=== PATIENT | male | born 1950 | race Caucasian/White ===

== ENCOUNTER 2024-02-28 17:51 | Inpatient (IN) | payer BC, OTHER ==
[~2024-02-28] VITALS: Ht 177.8 cm; Wt 107.1 kg
[2024-02-28] MEDS ORDERED: ACETAMINOPHEN 325 MG TAB PO PRN (20:15)
[2024-02-28] MEDS: FUROSEMIDE 40 MG/4 ML VIAL IV SCH (20:15)
[2024-02-28] MEDS ORDERED: HYDROcodone-ACET 5/325MG TAB PO PRN (20:15)
[2024-02-28] MEDS ORDERED: ONDANSETRON HCL 4 MG/2 ML VIAL IV PRN (20:15)
[2024-02-28 20:35] VITALS: PULSE 71; RESP 20; O2SAT 94
[2024-02-28] MEDS ORDERED: NITROGLYCERIN 0.4 MG SL TAB SL PRN (21:30)
[2024-02-28 21:47] LABS: Basophils # (auto) 0 10 ^3/uL (0-0.2); Basophils % (auto) 0.7 % (0.0-2.0); Eosinophils # (auto) 0.5 10 ^3/uL (0-0.8); Lymphocytes # (auto) 1.4 10 ^3/uL (0.4-5.4); Monocytes # (auto) 0.5 10 ^3/uL (0-1.3)
[2024-02-28 21:49] LABS: Eosinophils % (auto) 8.2 % (0.0-7.0); Hematocrit 35.3 % (41.0-53.0); Hemoglobin 12.6 g/dL (13.5-17.5); Lymphocytes % (auto) 23.3 % (10.0-50.0); Mean Corpuscular Hemoglobin 38.8 pg (28.0-32.0); Mean Corpuscular Hgb Conc. 35.6 g/dL (32.0-36.0); Mean Corpuscular Volume 108.9 fL (80.0-100.0); Monocytes % (auto) 8.1 % (0.0-12.0); Neutrophils # (auto) 3.6 10 ^3/uL (1.6-8.6); Neutrophils % (auto) 59.7 % (37.0-80.0); Nucleated Red Blood Cells % 0.1 %; Red Blood Cells 3.24 10^6/uL (4.5-5.90)
[2024-02-28 22:00] LABS: Red Cell Distribution Width 20.2 % (11.8-14.3)
[2024-02-28] MEDS: PIPERACILLIN-TAZOB 3.375GM 100 ML IV SCH (22:00)
[2024-02-28 22:03] LABS: Urine Bacteria None Seen /hpf (None Seen)
[2024-02-28 22:12] LABS: Alanine Aminotransferase 32 U/L (7-40); Albumin 3.1 g/dL (3.2-4.8); Alkaline Phosphatase 196 U/L (46-116); Anion Gap 8 (5-15); Aspartate Aminotransferase 60 U/L (13-40); BUN/Creatinine Ratio 10.2 (10.0-20.0); Blood Urea Nitrogen 6 mg/dL (9-23); Calcium 9.1 mg/dL (8.7-10.4); Carbon Dioxide 27 mmol/L (20-30); Chloride 105 mmol/L (98-107); Glucose 99 mg/dL (74-106); Potassium 3.8 mmol/L (3.5-5.1); Sodium 140 mmol/L (136-145)
[2024-02-28 22:13] LABS: Total Protein 6.4 g/dL (5.7-8.2)
[2024-02-28 22:21] LABS: Urine Blood 2+ /uL (Negative); Urine Clarity Clear (Clear); Urine Color Yellow (Yellow); Urine Protein, UAD Negative (Negative); Urine Specific Gravity 1.023 (1.001-1.035); Urine Urobilinogen Normal (Negative); Urine WBC 4 /hpf (0 - 3)
[2024-02-28 22:41] LABS: Anisocytosis Slight; Large Platelets FEW; Macrocytosis Slight; Platelet Estimate Decreased
[2024-02-29] VITALS (7 sets, daily range): BP systolic 99–138; BP diastolic 51–64; PULSE 72–78; RESP 17–20; TEMP 97.4–98.6; O2SAT 92–95
[2024-02-29 06:50] LABS: Chloride 107 mmol/L (98-107); Potassium 4.4 mmol/L (3.5-5.1); Sodium 141 mmol/L (136-145)
[2024-02-29 06:51] LABS: Anion Gap 6 (5-15); Calcium 8.8 mg/dL (8.7-10.4); Carbon Dioxide 28 mmol/L (20-30)
[2024-02-29 06:56] LABS: BUN/Creatinine Ratio 13.2 (10.0-20.0); Blood Urea Nitrogen 7 mg/dL (9-23); Glucose 102 mg/dL (74-106)
[2024-02-29 06:58] LABS: INR 1.84 (0.9-1.15); Prothrombin Time 18.6 sec (9.3-11.8)
[2024-02-29 07:38] LABS: Basophils # (auto) 0 10 ^3/uL (0-0.2); Basophils % (auto) 0.8 % (0.0-2.0); Eosinophils # (auto) 0.4 10 ^3/uL (0-0.8); Eosinophils % (auto) 7.2 % (0.0-7.0); Hematocrit 35.5 % (41.0-53.0); Hemoglobin 12.4 g/dL (13.5-17.5); Lymphocytes # (auto) 0.9 10 ^3/uL (0.4-5.4); Lymphocytes % (auto) 17.6 % (10.0-50.0); Mean Corpuscular Hemoglobin 38.7 pg (28.0-32.0); Mean Corpuscular Volume 110.3 fL (80.0-100.0); Monocytes # (auto) 0.4 10 ^3/uL (0-1.3); Monocytes % (auto) 8.1 % (0.0-12.0); Neutrophils # (auto) 3.6 10 ^3/uL (1.6-8.6); Neutrophils % (auto) 66.3 % (37.0-80.0); Nucleated Red Blood Cells % 0.8 %; Red Blood Cells 3.22 10^6/uL (4.5-5.90); White Blood Cell 5.4 10^3/uL (4.4-10.8)
[2024-02-29 07:40] LABS: Red Cell Distribution Width 20.4 % (11.8-14.3)
[2024-03-01] VITALS (8 sets, daily range): BP systolic 117–134; BP diastolic 55–65; PULSE 60–78; RESP 17–20; TEMP 97.7–98.9; O2SAT 91–96
[2024-03-01 06:21] LABS: Chloride 108 mmol/L (98-107); Potassium 4.3 mmol/L (3.5-5.1); Sodium 140 mmol/L (136-145)
[2024-03-01 06:22] LABS: Anion Gap 4 (5-15); Calcium 8.3 mg/dL (8.7-10.4); Carbon Dioxide 28 mmol/L (20-30)
[2024-03-01 06:27] LABS: BUN/Creatinine Ratio 15.3 (10.0-20.0); Blood Urea Nitrogen 9 mg/dL (9-23); Glucose 112 mg/dL (74-106)
[2024-03-01 06:49] LABS: Basophils # (auto) 0 10 ^3/uL (0-0.2); Eosinophils # (auto) 0.3 10 ^3/uL (0-0.8); Eosinophils % (auto) 5.6 % (0.0-7.0); Hemoglobin 11.7 g/dL (13.5-17.5); Lymphocytes # (auto) 0.9 10 ^3/uL (0.4-5.4); Mean Corpuscular Volume 109.4 fL (80.0-100.0); Monocytes # (auto) 0.5 10 ^3/uL (0-1.3); White Blood Cell 5.7 10^3/uL (4.4-10.8)
[2024-03-01 06:51] LABS: Basophils % (auto) 0.4 % (0.0-2.0); Hematocrit 33.1 % (41.0-53.0); Lymphocytes % (auto) 15.8 % (10.0-50.0); Mean Corpuscular Hemoglobin 38.6 pg (28.0-32.0); Mean Corpuscular Hgb Conc. 35.3 g/dL (32.0-36.0); Monocytes % (auto) 8.6 % (0.0-12.0); Neutrophils % (auto) 69.6 % (37.0-80.0); Nucleated Red Blood Cells % 0.8 %; Red Blood Cells 3.02 10^6/uL (4.5-5.90); Red Cell Distribution Width 20.3 % (11.8-14.3)
[2024-03-01] MEDS: PANTOPRAZOLE 40 MG/10 ML VIAL INJ IV SCH (10:00)
[2024-03-01 10:01] LABS: Hepatitis B Core Total AB Negative (Negative)
[2024-03-01 10:30] LABS: Hepatitis A Total Antibody Positive (Negative); Hepatitis B Surface Antibody Negative (Negative); Hepatitis B Surface Antigen Negative (Negative); Hepatitis C Antibody Negative (Negative)
[2024-03-02] VITALS (8 sets, daily range): BP systolic 120–139; BP diastolic 54–65; PULSE 63–98; RESP 17–20; TEMP 97.6–98.2; O2SAT 91–93
[2024-03-02 04:57] LABS: Hemoglobin 11.1 g/dL (13.5-17.5)
[2024-03-02 04:59] LABS: Hematocrit 30.7 % (41.0-53.0); Mean Corpuscular Hemoglobin 39.7 pg (28.0-32.0); Mean Corpuscular Hgb Conc. 36.1 g/dL (32.0-36.0); Red Blood Cells 2.79 10^6/uL (4.5-5.90); White Blood Cell 4.3 10^3/uL (4.4-10.8)
[2024-03-02 05:05] LABS: Anion Gap 6 (5-15); Carbon Dioxide 27 mmol/L (20-30); Chloride 107 mmol/L (98-107); Sodium 140 mmol/L (136-145)
[2024-03-02 05:06] LABS: Calcium 8.1 mg/dL (8.7-10.4)
[2024-03-02 05:11] LABS: Blood Urea Nitrogen 8 mg/dL (9-23); Glucose 112 mg/dL (74-106)
[2024-03-02 05:17] LABS: Red Cell Distribution Width 20.1 % (11.8-14.3)
[2024-03-02 05:20] LABS: Band Neutrophils % (manual) 0; Basophils % (manual) 0 (0.0-2.0); Blast Cells 0; Metamyelocytes % 0; Myelocytes % 0; Promyelocytes % 0; Reactive Lymphocytes 0
[2024-03-02 08:25] LABS: Eosinophils % (manual) 7 (0-7); Lymphocytes % (manual) 17 (10.0-50.0); Monocytes % (manual) 5 (0-12); Platelet Estimate Decreased
[2024-03-02 08:27] LABS: Anisocytosis Slight; Macrocytosis Moderate
[2024-03-02] MEDS ORDERED: FUROSEMIDE 40 MG TAB PO ONE (10:45)
[2024-03-02] MEDS ORDERED: FURO40TA4 PO (14:44)
[2024-03-02] MEDS ORDERED: SPIR25TA PO (14:44)
[2024-03-02] MEDS ORDERED: AUG875T PO (14:44)
[2024-03-02] MEDS: SPIRONOLACTONE 25 MG TAB PO ONE (15:06)
[2024-03-03] MEDS ORDERED: SPIRONOLACTONE 25 MG TAB PO SCH (10:00)
[2024-03-03] MEDS ORDERED: FUROSEMIDE 40 MG TAB PO SCH (10:00)
== END 2024-03-02 20:00 | disposition home or self-care (01) | DRG 728 ==
LOC: TELE-WESTW 20:33
PROVIDERS: ADMIT Internal Medicine; ATTEND Internal Medicine
DX: N43.1 Infected hydrocele (principal); K76.6 Portal hypertension; R18.8 Other ascites; K80.51 Calculus of bile duct without cholangitis or cholecystitis with obstruction; E87.70 Fluid overload, unspecified; N49.2 Inflammatory disorders of scrotum; K74.60 Unspecified cirrhosis of liver; N40.1 Benign prostatic hyperplasia with lower urinary tract symptoms; R33.8 Other retention of urine; R79.89 Other specified abnormal findings of blood chemistry; R31.9 Hematuria, unspecified; Z82.61 Family history of arthritis; Z87.891 Personal history of nicotine dependence
CPT/HCPCS: 36415; 74176; 74181; 76705; 76870; 80048; 80053; 81001; 82105; 82140; 85007; 85025; 85027; 85610; 86704; 86706; 86708; 86803; 87040; 87340; 93306; G0378; J2470; J2543

== ENCOUNTER 2024-03-06 16:49 | Emergency (ER) | payer BC, OTHER ==
[~2024-03-06] VITALS: Ht 177.8 cm; Wt 101.1 kg
[~2024-03-06 16:49] MED LIST: AUG875T PO; FURO40TA4 PO; SPIR25TA PO
[2024-03-06 18:39] VITALS: BP 126/59; PULSE 86; RESP 16; TEMP 98.2; O2SAT 95
== END 2024-03-06 18:46 | disposition home or self-care (01) ==
LOC: ER 16:49
DX: T83.038A Leakage of other urinary catheter, initial encounter (principal); R33.9 Retention of urine, unspecified; K74.60 Unspecified cirrhosis of liver
CPT/HCPCS: 51702

== ENCOUNTER 2024-03-14 14:51 | Emergency (ER) | payer BC, OTHER ==
[~2024-03-14] VITALS: Ht 177.8 cm; Wt 93.0 kg
[2024-03-14 16:45] LABS: Urine Amorphous Crystal FEW /hpf (None Seen); Urine Bacteria FEW /hpf (None Seen); Urine Blood 3+ /uL (Negative); Urine Clarity Turbid (Clear); Urine Color Yellow (Yellow); Urine Mucus FEW (None Seen); Urine Protein, UAD 1+ (Negative); Urine Specific Gravity 1.013 (1.001-1.035); Urine Urobilinogen Normal (Negative); Urine WBC 77 /hpf (0 - 3); Urine pH 5.5 (5.0-9.0)
[2024-03-14] MEDS: cefTRIAXone 2GM/50ML D5W 50 ML IV ONE (17:49)
[2024-03-14 18:01] LABS: INR 1.69 (0.9-1.15); Prothrombin Time 17.2 sec (9.3-11.8)
[2024-03-14 18:06] LABS: Alanine Aminotransferase 44 U/L (7-40); Albumin 3.3 g/dL (3.2-4.8); Alkaline Phosphatase 210 U/L (46-116); Anion Gap 7 (5-15); Aspartate Aminotransferase 71 U/L (13-40); BUN/Creatinine Ratio 12.5 (10.0-20.0); Bilirubin, Total 9.9 mg/dL (0.2-1.0); Blood Urea Nitrogen 8 mg/dL (9-23); Calcium 9.2 mg/dL (8.7-10.4); Carbon Dioxide 26 mmol/L (20-30); Chloride 98 mmol/L (98-107); Glucose 100 mg/dL (74-106); Potassium 4.4 mmol/L (3.5-5.1); Sodium 131 mmol/L (136-145); Total Protein 7.1 g/dL (5.7-8.2)
[2024-03-14 19:15] LABS: Basophils # (auto) 0.1 10 ^3/uL (0-0.2); Eosinophils # (auto) 0.4 10 ^3/uL (0-0.8); Lymphocytes # (auto) 1.1 10 ^3/uL (0.4-5.4); Mean Corpuscular Hemoglobin 39.6 pg (28.0-32.0); Monocytes # (auto) 0.8 10 ^3/uL (0-1.3)
[2024-03-14 19:16] LABS: Basophils % (auto) 0.9 % (0.0-2.0); Hematocrit 38.3 % (41.0-53.0); Hemoglobin 13.7 g/dL (13.5-17.5); Mean Corpuscular Hgb Conc. 35.8 g/dL (32.0-36.0); Mean Corpuscular Volume 110.9 fL (80.0-100.0); Monocytes % (auto) 12.1 % (0.0-12.0); Neutrophils # (auto) 4.4 10 ^3/uL (1.6-8.6); Nucleated Red Blood Cells % 0.3 %; Red Blood Cells 3.46 10^6/uL (4.5-5.90); White Blood Cell 6.8 10^3/uL (4.4-10.8)
[2024-03-14 20:00] VITALS: BP 119/61; PULSE 71; RESP 18; TEMP 97.7; O2SAT 98
[2024-03-14] MEDS ORDERED: CEPH500C PO (22:03)
== END 2024-03-14 23:14 | disposition home or self-care (01) ==
LOC: ER 14:51
DX: R31.9 Hematuria, unspecified (principal); N39.0 Urinary tract infection, site not specified; Z79.899 Other long term (current) drug therapy
CPT/HCPCS: 36415; 74176; 80053; 81001; 85025; 85610; 87086; 96365; 99285; J0696

== ENCOUNTER 2024-03-16 09:30 | Emergency (ER) | payer BC, OTHER ==
[~2024-03-16] VITALS: Ht 177.8 cm; Wt 93.3 kg
[~2024-03-16 09:30] MED LIST changes: +CEPH500C PO
[2024-03-16 10:31] VITALS: BP 115/59; PULSE 87; RESP 16; TEMP 98.4; O2SAT 95
[2024-03-16 11:08] LABS: Urine Bacteria None Seen /hpf (None Seen)
[2024-03-16 11:26] LABS: Urine Blood 2+ /uL (Negative); Urine Clarity Clear (Clear); Urine Color Yellow (Yellow); Urine Hyaline Cast MOD /lpf (0 - 2); Urine Protein, UAD Negative (Negative); Urine Specific Gravity 1.012 (1.001-1.035); Urine Urobilinogen Normal (Negative); Urine WBC 2 /hpf (0 - 3); Urine pH 5.5 (5.0-9.0)
== END 2024-03-16 11:07 | disposition home or self-care (01) ==
LOC: ER 09:30
DX: N39.0 Urinary tract infection, site not specified (principal); Z79.899 Other long term (current) drug therapy
CPT/HCPCS: 81001

== ENCOUNTER 2024-12-15 04:52 | Inpatient (IN) | payer BC, OTHER ==
[~2024-12-15] VITALS: Ht 182.9 cm; Wt 91.5 kg
[2024-12-15] MEDS: SODIUM CHLORIDE 0.9% 1,000 ML IV ONE (05:00)
--- NOTE | 2024-12-15 05:22 | ED.PDOC ---
History of Present Illness HPI Comments 74-year-old male who came to ER via EMS for weakness. Patient has history of liver cirrhosis and AFib. Recently patient has been having generalized Weakness and dizziness, with episodes of frequent falls. Had another fall injury last December 13 at around 9pm, and has been laying on the floor all this time since he was unable to get up until toady as he called paramedics. Upon arrival paramedics, noted to be hypotensive, 100/50 mmHg, EKG revealed patient to be AFib in RVR Chief Complaint: Weakness Time Seen by MD: 05:21 Primary Care Provider: JORGE Reviewed Notes: Assorter Laundry Notes Allergies: Coded Allergies: NO KNOWN ALLERGIES (Unverified , 02/29/24) Home Meds Active Scripts Cephalexin Monohydrate (Cephalexin) 500 Mg Cap, 1 CAP PO TID for 5 Days, #15 CAP Prov:RADHIKA DELGADO MD 03/14/24 Amoxicillin & Pot Clavulanate (AUGMENTIN TABLET) 875 Mg Tb, 875 MG PO BID for 7 Days, #14 TAB Prov:RADHIKA DELGADO MD 03/02/24 Spironolactone (Aldactone) 25 Mg Tab, 100 MG PO DAILY, #30 TAB Prov:RADHIKA DELGADO MD 03/02/24 Furosemide (Furosemide) 40 Mg Tab, 40 MG PO DAILY for 30 Days, #30 TAB Prov:RADHIKA DELGADO MD 03/02/24 Information Source: Patient, Emergency Med Personnel Mode of Arrival: EMS Severity: Moderate Timing: Hours Duration: Intermittent Prehospital treatment: 12 Lead EKG, Accucheck, IVF Past Medical History PAST MEDICAL HISTORY: AFIB, Liver Past Medical History (Other): Liver cirrhosis Surgical History: Denies all surgeries Family History Family History: Reviewed,noncontributory to illness, Unknown Social History Smoker: Non-Smoker Alcohol: Denies ETOH Use Drugs: Denies Drug Use Lives In: Home Constitutional: denies: chills, diaphoresis, fatigue, fever, malaise, sweats, weakness, others EENTM: denies: blurred vision, double vision, ear bleeding, ear discharge, ear drainage, ear pain, ear ringing, eye pain, eye redness, hearing loss, mouth pain, mouth swelling, nasal discharge, nose bleeding, nose congestion, nose pain, photophobia, tearing, throat pain, throat swelling, voice changes, others Respiratory: denies: cough, hemoptysis, orthopnea, SOB at rest, shortness of breath, SOB with excertion, stridor, wheezing, others Cardiovascular: denies: chest pain, dizzy spells, diaphoresis, Dyspnea on exertion, edema, irregular heart beat, left arm pain, lightheadedness, palpitations, PND, syncope, others Gastrointestinal: denies: abdomen distended, abdominal pain, blood streaked bowels, constipated, diarrhea, dysphagia, difficulty swallowing, hematemesis, melena, nausea, poor appetite, poor fluid intake, rectal bleeding, rectal pain, vomiting, others Genitourinary: denies: burning, dysuria, flank pain, frequency, hematuria, incontinence, penile discharge, penile sore, pain, testicle pain, testicle swelling, urgency, others Neurological: reports: dizziness, weakness; denies: fainting, headache, left sided numbness, left sided weakness, numbness, paresthesia, pre-existing deficit, right sided numbness, right sided weakness, seizure, speech problems, tingling, tremors, others Musculoskeletal: denies: back pain, gout, joint pain, joint swelling, muscle pain, muscle stiffness, neck pain, others Integumetry: denies: bruises, change in color, change in hair/nails, dryness, laceration, lesions, lumps, rash, wounds, others Hematologic/Lymphatic: denies: anemia, blood clots, easy bleeding, easy bruising, swollen glands, others Endocrine: denies: excessive hunger, excessive sweating, excessive thirst, excessive urination, flushing, intolerance to cold, intolerance to heat, unexplained weight gain, unexplained weight loss, others Psychiatric: denies: anxiety, bipolar disorder, depression, hopeless, panic disorder, schizophrenia, sleepless, suicidal, others Physical Exam General Appearance: No Apparent Distress, Normal HEENT: Normal ENT Inspection, Pharynx Normal, TMs Normal Neck: Full Range of Motion, Non-Tender, Normal, Normal Inspection Respiratory: Chest Non-Tender, Lungs Clear, No Accessory Muscle Use, No Respiratory Distress, Normal Breath Sounds Cardiovascular: No Edema, No JVD, No Murmur, No Gallop, Normal Peripheral Pulses, Regular Rate/Rhythm Breast Exam: Deferred Gastrointestinal: No Organomegaly, Non Tender, No Pulsatile Mass, Normal Bowel Sounds, Soft Genitalia: Deferred Pelvic: Deferred Rectal: Deferred Extremities: No calf tenderness, Normal capillary refill, Normal inspection, Normal range of motion, Non-tender, No pedal edema Musculoskeletal : Apperance: Normal Neurologic: Alert, straight cutter II-XII nml as Tested, No Motor Deficits, Normal Affect, Normal Mood, No Sensory Deficits Cerebellar Function: Normal Reflexes: Normal Skin: Dry, Normal Color, Warm Lymphatic: No Adenopathy Was a procedure done? Was a procedure done?: No Differential Dx Considerations may include: Anemia, electrolyte imbalance, liver cirrhosis, UTI, encephalopathy, weakness, fall injury, sepsis, arrhythmias X-Ray, Labs, Meds, VS Vital Signs Date Time Temp Pulse Resp B/P (MAP) Pulse Ox O2 Delivery O2 Flow Rate FiO2 12/15/24 08:18 97.8 138 23 93/42 (59) 90 97.8 12/15/24 06:08 138 12/15/24 06:00 137 18 97/29 (51) 12/15/24 05:40 98.0 120 20 102/30 (54) 97 98.0 12/15/24 04:57 146 12/15/24 04:55 97.8 140 24 109/51 (70) 95 97.8 Lab Test 12/15/24 08:06 12/15/24 07:50 12/15/24 06:23 12/15/24 05:20 Range/Units Troponin I High Sensitivity Pending 42 45 </=54 ng/L Lactic Acid Level 3.1 *H 3.8 *H 3.8 *H 0.4-2.0 mmol/L Magnesium Level 2.1 1.6-2.6 mg/dL Ammonia < 10 L 11-32 umol/L White Blood Count 5.1 4.4-10.8 10^3/uL Red Blood Count 2.74 L 4.5-5.90 10^6/uL Hemoglobin 11.0 L 13.5-17.5 g/dL Hematocrit 30.9 L 41.0-53.0 % Mean Corpuscular Volume 113.1 H 80.0-100.0 fL Mean Corpuscular Hemoglobin 40.2 H 28.0-32.0 pg Mean Corpuscular Hemoglobin Concent 35.6 32.0-36.0 g/dL Red Cell Distribution Width 18.5 H 11.8-14.3 % Platelet Count 84 L 140-450 10^3/uL Mean Platelet Volume 9.1 6.9-10.8 fL Neutrophils (%) (Auto) 90.6 H 37.0-80.0 % Lymphocytes (%) (Auto) 3.2 L 10.0-50.0 % Monocytes (%) (Auto) 3.3 0.0-12.0 % Eosinophils (%) (Auto) 1.2 0.0-7.0 % Basophils (%) (Auto) 1.7 0.0-2.0 % Neutrophils # (Auto) 4.6 1.6-8.6 10 ^3/uL Lymphocytes # (Auto) 0.2 L 0.4-5.4 10 ^3/uL Monocytes # (Auto) 0.2 0-1.3 10 ^3/uL Eosinophils # (Auto) 0.1 0-0.8 10 ^3/uL Basophils # (Auto) 0.1 0-0.2 10 ^3/uL Nucleated Red Blood Cells 0.1 % Platelet Estimate Decreased Macrocytosis Slight Sodium Level 137 136-145 mmol/L Potassium Level 5.1 3.5-5.1 mmol/L Chloride Level 101 98-107 mmol/L Carbon Dioxide Level 26 20-31 mmol/L Anion Gap 10 5-15 Blood Urea Nitrogen 32 H 9-23 mg/dL Creatinine 0.80 0.700-1.30 mg/dL Glomerular Filtration Rate Calc 93 >90 mL/min BUN/Creatinine Ratio 40.0 H 10.0-20.0 Serum Glucose 100 74-106 mg/dL Calcium Level 9.5 8.7-10.4 mg/dL B-Type Natriuretic Peptide 1185.38 0-100 pg/mL Plasma/Serum Blood Alcohol < 3.0 <10 mg/dL Current Medications Medications (Trade) Dose Ordered Sig/Alessandro Route Start Time Stop Time Status Last Admin Sodium Chloride 1,000 ml @ 1,000 mls/hr Q1H ONCE IV 12/15/24 05:00 12/15/24 05:59 DC 12/15/24 05:00 Amiodarone HCl 100 ml @ 600 mls/hr ONCE ONCE IV 12/15/24 06:45 12/15/24 06:54 DC 12/15/24 07:28 Time of 1ST Reevaluation: 05:16 Reevaluation 1ST: Unchanged Time of 2ND Reevaluation: 08:27 Reevaluation 2ND: Improved Patient Education/Counseling: Diagnosis, Treatment, Prognosis, Need For Follow Up Family Education/Counseling: No Family Present Additional Information 0727- pt has elevated HR and RR, and increased in LA, thus, qualifies for sepsis criteria. sepsis ordered. however, due to evidence of volume overload, i will stop the 30cc/kg IV bolus as part of the order set i consulted Dr Landry, who will come to admit pt for sepsis, likely source is urine, by history, but pt has not provided urine. sepsis orders initiated Sepsis Sepsis Reasesment Focused Exam Sepsis focused exam: focus exam completed (bp is stable, cap rerill<2 secs. still jaundiced), time: (829) Departure 1 Departure Time of Disposition: 08:25 Impression: Primary Impression: Liver failure Qualified Codes: K72.10 - Chronic hepatic failure without coma Additional Impressions: Sepsis Qualified Codes: A41.9 - Sepsis, unspecified organism Atrial fibrillation with RVR Disposition: ADMITTED INPATIENT Admit to: ICU Condition: Serious Discharged With: Self Critical Care Note Critical Care Time?: Yes (55 min-critical care time only) Critical care comment: Due to concerns for patients condition deteriorating, the care required my highest level of attention and readiness to intervene. I assessed the patient, reviewed the medical records, ordered the appropriate tests and treatments, then reassessed for results and responsiveness. I communicated with medical personnel and consultants and formulated a plan of care. Total critical care time excludes any procedures Stability Stability form required: No Heart Score Heart Score: Heart Score Response (Comments) Value History Moderate Suspicious 1 EKG Repolarization Disturb 1 Age >65 2 Risk Factors >3 or Hx ASHD 2 Troponin Normal limit 0 Total 6 I personally scribed for JUANA GARCIA MD ([email or web address]) on 12/15/24 at 05:22. Electronically submitted by Misael Hurd (Parents R People). I personally scribed for JUANA GARCIA MD ([email or web address]) on 12/15/24 at 05:59. Electronically submitted by Misael Hurd ([email or web address]). JUANA GARCIA MD December 15, 2024 05:22 GABI BOWMAN MD December 15, 2024 07:30
[2024-12-15 05:41] LABS: Basophils # (auto) 0.1 10 ^3/uL (0-0.2); Eosinophils # (auto) 0.1 10 ^3/uL (0-0.8); Lymphocytes # (auto) 0.2 10 ^3/uL (0.4-5.4); Monocytes # (auto) 0.2 10 ^3/uL (0-1.3); Monocytes % (auto) 3.3 % (0.0-12.0)
[2024-12-15 05:44] LABS: Basophils % (auto) 1.7 % (0.0-2.0); Eosinophils % (auto) 1.2 % (0.0-7.0); Hematocrit 30.9 % (41.0-53.0); Lymphocytes % (auto) 3.2 % (10.0-50.0); Mean Corpuscular Hemoglobin 40.2 pg (28.0-32.0); Mean Corpuscular Hgb Conc. 35.6 g/dL (32.0-36.0); Mean Corpuscular Volume 113.1 fL (80.0-100.0); Neutrophils # (auto) 4.6 10 ^3/uL (1.6-8.6); Neutrophils % (auto) 90.6 % (37.0-80.0); Nucleated Red Blood Cells % 0.1 %; Platelet Count (auto) 84 10^3/uL (140-450); Red Blood Cells 2.74 10^6/uL (4.5-5.90); Red Cell Distribution Width 18.5 % (11.8-14.3); White Blood Cell 5.1 10^3/uL (4.4-10.8)
[2024-12-15 05:57] LABS: Chloride 101 mmol/L (98-107); Potassium 5.1 mmol/L (3.5-5.1); Sodium 137 mmol/L (136-145)
[2024-12-15 05:58] LABS: Anion Gap 10 (5-15); Calcium 9.5 mg/dL (8.7-10.4); Carbon Dioxide 26 mmol/L (20-31)
[2024-12-15 06:03] LABS: Glucose 100 mg/dL (74-106)
[2024-12-15 06:09] LABS: Macrocytosis Slight; Platelet Estimate Decreased
[2024-12-15 06:12] LABS: Blood Urea Nitrogen 32 mg/dL (9-23)
--- NOTE | 2024-12-15 06:16 | DVH ---
CHEST RADIOGRAPH Indication: syncope Technique: Single frontal view of the chest was obtained COMPARISON: None FINDINGS: Lines and Tubes: None Lungs: The costophrenic angles are excluded from the image. No evidence of focal consolidation. Pleura: No effusion. No pneumothorax. Cardiomediastinal contours: Unremarkable Bones: Unremarkable IMPRESSION: 1. No acute disease. Costophrenic angles excluded from the inferior margin of the image.
[2024-12-15 06:17] LABS: Lactic Acid w/Reflex 3.8 mmol/L (0.4-2.0)
--- NOTE | 2024-12-15 07:13 | ECG ---
[facility] Test Date: 2024-12-15 Test Time: 06:08:06 Pat Name: ROMEL TERRY Department: ED Room: 0220T Gender: M Boiler Maker: : 1950 Requested By: JUANA GARCIA Order Number: [id number] Reading MD: Jairon Singh Measurements Intervals Gantt Rate: 138 P: 0 AL: 0 QRS: 86 QRSD: 76 T: 53 QT: 321 QTc: 487 Interpretive Statements Atrial fibrillation Borderline right axis deviation Borderline low voltage, extremity leads ST elevation, consider inferior injury Borderline prolonged QT interval Electronically Signed On 12-20-2024 20:27:22 PDT by Jairon Singh Please click the below link to view image of tracing.
--- NOTE | 2024-12-15 07:13 | ECG ---
[facility] Test Date: 2024-12-15 Test Time: 04:57:21 Pat Name: ROMEL TERRY Department: ED Room: 0220T Gender: M Helpdesk Manager: : [id number] Requested By: JUANA GARCIA Order Number: [id number] Reading MD: Jairon Singh Measurements Intervals Rawlings Rate: 146 P: 0 DE: 0 QRS: 81 QRSD: 121 T: 51 QT: 334 QTc: 521 Interpretive Statements Atrial flutter Ventricular premature complex Nonspecific intraventricular conduction delay Nonspecific T abnormalities, lateral leads Borderline ST elevation, inferior leads Electronically Signed On 12-20-2024 20:27:10 PDT by Jairon Singh Please click the below link to view image of tracing.
[2024-12-15] MEDS: AMIODARONE BOLUS KIT 100 ML IV ONE ×3 (07:28→15:07)
--- NOTE | 2024-12-15 07:28 | DVH ---
EXAM: CT Head Without Intravenous Contrast CLINICAL INDICATION: syncope TECHNIQUE: Axial computed tomography images of the head/brain without intravenous contrast. This CT exam was performed using one or more of the following dose reduction techniques: automated exposure control, adjustment of the mA and/or kV according to patient size, and/or use of iterative reconstru ction technique. CONTRAST: RADIATION DOSE: CTDIvol = 53.63 mGy, DLP = 859.74 mGy-cm COMPARISON: None FINDINGS: BRAIN AND EXTRA-AXIAL SPACES: The cerebral and cerebellar sulci are mildly prominent consistent wit h mild brain atrophy. Areas of decreased attenuation in the deep cerebral white matter are consisten t with small vessel ischemic/degenerative changes. No acute intracranial hemorrhage, midline shift o r mass effect. If symptoms persist, further evaluation with MRI is recommended. BONES/JOINTS: Unremarkable. No acute fracture. SOFT TISSUES: Unremarkable. SINUSES: Unremarkable as visualized. No acute sinusitis. MASTOID AIR CELLS: Unremarkable as visualized. No mastoid effusion. OTHER FINDINGS: . . IMPRESSION: 1. Small vessel ischemic/degenerative changes. 2. No acute intracranial hemorrhage, midline shift or mass effect. If symptoms persist, further eval uation with MRI is recommended.
[2024-12-15] MEDS ORDERED: SODIUM CHLORIDE 0.9% 2,350 ML IV ONE (07:30)
[2024-12-15] MEDS: AMIODARONE 360mg/200mL PREMIX 200 ML IV ONE ×2 (07:55→14:30)
[2024-12-15 08:37] LABS: Lactic Acid w/Reflex 3.1 mmol/L (0.4-2.0)
[2024-12-15 10:00] VITALS: PULSE 139; RESP 21; O2SAT 92
[2024-12-15] MEDS ORDERED: ONDANSETRON HCL 4 MG/2 ML VIAL IV PRN (12:00)
[2024-12-15] MEDS ORDERED: MORPHINE SULFATE INJ 2 MG/ml SYRG IV PRN (12:00)
[2024-12-15] MEDS ORDERED: NITROGLYCERIN 0.4 MG SL TAB SL PRN (12:00)
[2024-12-15] MEDS ORDERED: VANCOMYCIN PER PHARMACY 0 MG IV SCH (12:00)
--- NOTE | 2024-12-15 13:24 | DVHINCON2 ---
Date of service: December 15, 2024 History of Present Illness 74 yo M with cirrhosis and afib admitted after a fall and found down for couple days. ecg showed afib rvr. Past Medical History reviewed Family History: Arthritis G8 FATHER Tumor G8 MOTHER Allergies: Coded Allergies: NO KNOWN ALLERGIES (Unverified , 02/29/24) Home Meds Active Scripts Cephalexin Monohydrate (Cephalexin) 500 Mg Cap, 1 CAP PO TID for 5 Days, #15 CAP Prov:RADHIKA DELGADO MD 03/14/24 Amoxicillin & Pot Clavulanate (AUGMENTIN TABLET) 875 Mg Tb, 875 MG PO BID for 7 Days, #14 TAB Prov:RADHIKA DELGADO MD 03/02/24 Spironolactone (Aldactone) 25 Mg Tab, 100 MG PO DAILY, #30 TAB Prov:RADHIKA DELGADO MD 03/02/24 Furosemide (Furosemide) 40 Mg Tab, 40 MG PO DAILY for 30 Days, #30 TAB Prov:RADHIKA DELGADO MD 03/02/24 Current Medications Current Medications Medications (Trade) Dose Ordered Sig/Alessandro Route PRN Reason Start Time Stop Time Status Last Admin Piperacillin Sod/ Tazobactam Sod 100 ml @ 25 mls/hr Q8HR IV 12/15/24 14:00 12/15/24 12:05 DC Nitroglycerin (Ntrostat Sublingual) 0.4 mg Q5MINP PRN SL FOR CHEST PAIN 12/15/24 12:00 Morphine Sulfate 2 mg Q30M PRN IV FOR CHEST PAIN 12/15/24 12:00 Sodium Chloride 1,000 ml @ 100 mls/hr Q10H IV 12/15/24 12:00 Enoxaparin Sodium (Lovenox) 90 mg Q12H SC 12/15/24 13:14 Cefepime HCl 50 ml @ 12.5 mls/hr Q8HR IV 12/15/24 14:00 UNV Vancomycin HCl 0 ml @ 0 mls/hr UD IV 12/15/24 12:00 Ondansetron HCl (Zofran) 4 mg Q4HPRN PRN IV NAUSEA / VOMITING 12/15/24 12:00 Morphine Sulfate 2 mg Q4HPRN PRN IV SEVERE PAIN (7-10 PAIN SCALE) 12/15/24 12:00 Famotidine (Pepcid Injection) 20 mg Q12HR IV 12/15/24 22:00 Vancomycin HCl 250 ml @ 250 mls/hr Q1H IV 12/15/24 12:15 12/15/24 14:14 Cefepime HCl 50 ml @ 12.5 mls/hr Q8HR IV 12/15/24 22:00 Review of Systems 10 pt ros otherwise negative Vital Signs Vital Signs Date Time Temp Pulse Resp B/P (MAP) Pulse Ox O2 Delivery O2 Flow Rate FiO2 12/15/24 08:18 97.8 138 23 93/42 (59) 90 97.8 Physical Exam disheveled appearnce s1 s2 irregular mulitple bruises Face: NC, AT, ?jaundice ctab soft obese +1 leg edema Labs/Diagnostic Data Labs Test 12/15/24 13:17 12/15/24 08:06 12/15/24 07:50 12/15/24 06:23 Range/Units Troponin I High Sensitivity 44 </=54 ng/L Thyroid Stimulating Hormone (TSH) 2.43 0.55-4.78 uIU/mL Lactic Acid Level 3.1 *H 0.4-2.0 mmol/L Magnesium Level 2.1 1.6-2.6 mg/dL Ammonia < 10 L 11-32 umol/L Test 12/15/24 05:20 Range/Units White Blood Count 5.1 4.4-10.8 10^3/uL Red Blood Count 2.74 L 4.5-5.90 10^6/uL Hemoglobin 11.0 L 13.5-17.5 g/dL Hematocrit 30.9 L 41.0-53.0 % Mean Corpuscular Volume 113.1 H 80.0-100.0 fL Mean Corpuscular Hemoglobin 40.2 H 28.0-32.0 pg Mean Corpuscular Hemoglobin Concent 35.6 32.0-36.0 g/dL Red Cell Distribution Width 18.5 H 11.8-14.3 % Platelet Count 84 L 140-450 10^3/uL Mean Platelet Volume 9.1 6.9-10.8 fL Neutrophils (%) (Auto) 90.6 H 37.0-80.0 % Lymphocytes (%) (Auto) 3.2 L 10.0-50.0 % Monocytes (%) (Auto) 3.3 0.0-12.0 % Eosinophils (%) (Auto) 1.2 0.0-7.0 % Basophils (%) (Auto) 1.7 0.0-2.0 % Neutrophils # (Auto) 4.6 1.6-8.6 10 ^3/uL Lymphocytes # (Auto) 0.2 L 0.4-5.4 10 ^3/uL Monocytes # (Auto) 0.2 0-1.3 10 ^3/uL Eosinophils # (Auto) 0.1 0-0.8 10 ^3/uL Basophils # (Auto) 0.1 0-0.2 10 ^3/uL Nucleated Red Blood Cells 0.1 % Platelet Estimate Decreased Macrocytosis Slight Sodium Level 137 136-145 mmol/L Potassium Level 5.1 3.5-5.1 mmol/L Chloride Level 101 98-107 mmol/L Carbon Dioxide Level 26 20-31 mmol/L Anion Gap 10 5-15 Blood Urea Nitrogen 32 H 9-23 mg/dL Creatinine 0.80 0.700-1.30 mg/dL Glomerular Filtration Rate Calc 93 >90 mL/min BUN/Creatinine Ratio 40.0 H 10.0-20.0 Serum Glucose 100 74-106 mg/dL Calcium Level 9.5 8.7-10.4 mg/dL B-Type Natriuretic Peptide 1185.38 0-100 pg/mL Plasma/Serum Blood Alcohol < 3.0 <10 mg/dL Assessment afib r/o coagulopathy cirrhosis hypotension weakness r/o jaundice low PLTs Plan/Recommendation check coags to assess for liver failure amio gtt for now watch LFTs IVF as needed on lovenox, watch PLT poor guarded prognosis Plan discussed with: Patient MILLIE MORRIS MD December 15, 2024 13:24
[2024-12-15 13:32] LABS: Urine Bacteria FEW /hpf (None Seen); Urine Blood 1+ /uL (Negative); Urine Clarity Hazy (Clear); Urine Color Dark-Yellow (Yellow); Urine Hyaline Cast MANY /lpf (0 - 2); Urine Mucus FEW (None Seen); Urine Protein, UAD Negative (Negative); Urine Specific Gravity 1.019 (1.001-1.035); Urine Squamous Epithelial Cell FEW /hpf (<5); Urine Urobilinogen 6 mg/dL (Negative); Urine WBC 1 /HPF (0-3)
[2024-12-15] MEDS: SODIUM CHLORIDE 0.9% 2,350 ML IV ONE (13:35)
[2024-12-15] MEDS: VANCOMYCIN 1GM/200ML PM 250 ML IV SCH (13:43)
[2024-12-15] MEDS ORDERED: PIPERACILLIN-TAZOB 3.375GM 100 ML IV SCH (14:00)
[2024-12-15] MEDS ORDERED: CEFEPIME 1GM/ 50ML 50 ML IV SCH (14:00)
[2024-12-15 14:25] LABS: INR 2.28 (0.9-1.15); Prothrombin Time 22.3 sec (9.3-11.8)
[2024-12-15 14:27] LABS: Lactic Acid w/Reflex 2.4 mmol/L (0.4-2.0)
[2024-12-15] MEDS: ENOXAPARIN SOD 100 MG/1 ML SYRINGE SC SCH (14:30)
--- NOTE | 2024-12-15 15:04 | DVHHP2 ---
History of Present Illness Reason for Visit: Generalized weakness and dizziness History of Present Illness 74-year-old male who came to ER via EMS for weakness. Patient has history of liver cirrhosis and AFib. Recently patient has been having generalized Weakness and dizziness, with episodes of frequent falls. Had another fall injury last December 13 at around 9pm, and has been laying on the floor all this time since he was unable to get up until toady as he called paramedics. Upon arrival paramedics, noted to be hypotensive, 100/50 mmHg, EKG revealed patient to be AFib in RVR In the ER he was started on amiodarone drip and being admitted to step-down unit for further evaluation management. Patient is a poor historian however says he was admitted here last year for similar complaints. Since June he has not been taking any of his medications due to he ran out of them. Patient says he goes to Dr. Schwarz[facility]. Patient says he has liver and heart problems. Past Medical History Liver cirrhosis, atrial fibrillation, coagulopathy Past Surgical History None significant noted Smoke: No ALCOHOL: occassional Lives: with Family Review of Systems Review of Systems He denies any recent travel. Denies any fevers chills or sweats. No loss of consciousness or syncopal episodes. Normal bowel and bladder movements. Other review of systems reviewed normal. Allergies: Coded Allergies: NO KNOWN ALLERGIES (Unverified , 02/29/24) Medications Current Medications Medications Dose Ordered Sig/Alessandro Route Start Time Stop Time Status Last Admin Dose Admin Nitroglycerin 0.4 mg Q5MINP PRN SL 12/15/24 12:00 Morphine Sulfate 2 mg Q30M PRN IV 12/15/24 12:00 Sodium Chloride 1,000 ml @ 100 mls/hr Q10H IV 12/15/24 12:00 Enoxaparin Sodium 90 mg Q12H SC 12/15/24 13:14 12/15/24 14:30 90 MG Cefepime HCl 50 ml @ 12.5 mls/hr Q8HR IV 12/15/24 14:00 UNV Vancomycin HCl 0 ml @ 0 mls/hr UD IV 12/15/24 12:00 Ondansetron HCl 4 mg Q4HPRN PRN IV 12/15/24 12:00 Morphine Sulfate 2 mg Q4HPRN PRN IV 12/15/24 12:00 Famotidine 20 mg Q12HR IV 12/15/24 22:00 Cefepime HCl 50 ml @ 12.5 mls/hr Q8HR IV 12/15/24 22:00 Exam Vital Signs Vital Signs Date Time Temp Pulse Resp B/P (MAP) Pulse Ox O2 Delivery O2 Flow Rate FiO2 12/15/24 13:05 149 24 109/37 (61) 92 12/15/24 10:00 Room Air* 0 21 12/15/24 08:18 97.8 97.8 Exam Alert awake oriented to place and person. Having his lunch. Comfortable in bed. HEENT notable for scleral icterus. Pupils equal round react to light. Mild bruising noted on his extremities. Neck supple no JVD. Heart irregular rate and rhythm tachycardia S1 plus S2. Lungs fair air movement. Chest tube will expansion. No rales or wheezes. Abdomen is obese. Soft. Nontender. Positive bowel sounds. Extremities trace edema around the ankles with a chronic venous stasis changes noted. Positive distal pedal pulses. Neurological no gross focal deficits noted. Labs/Xrays Labs Test 12/15/24 14:03 12/15/24 13:17 12/15/24 08:06 12/15/24 06:23 Range/Units Prothrombin Time 22.3 H 9.3-11.8 sec Prothrombin Time INR 2.28 H 0.9-1.15 Lactic Acid Level 2.4 *H 0.4-2.0 mmol/L Urine Color Dark-yellow Yellow Urine Clarity Hazy H Clear Urine pH 5.0 5.0-9.0 Urine Specific [place] 1.019 1.001-1.035 Urine Protein Negative Negative Urine Ketones Negative Negative Urine Blood 1+ H Negative /uL Urine Nitrite Negative Negative Urine Bilirubin 1+ Negative Urine Urobilinogen 6 Negative mg/dL Urine Leukocyte Esterase Negative Negative /uL Urine RBC 1 0 - 3 /hpf Urine Microscopic WBC 1 0-3 /HPF Urine Squamous Epithelial Cells Few <5 /hpf Urine Bacteria Few H None Seen /hpf Urine Hyaline Casts Many 0 - 2 /lpf Urine Mucus Few None Seen Urine Glucose Normal Normal mg/dL Troponin I High Sensitivity 44 </=54 ng/L Thyroid Stimulating Hormone (TSH) 2.43 0.55-4.78 uIU/mL Magnesium Level 2.1 1.6-2.6 mg/dL Ammonia < 10 L 11-32 umol/L Test 12/15/24 05:20 Range/Units White Blood Count 5.1 4.4-10.8 10^3/uL Red Blood Count 2.74 L 4.5-5.90 10^6/uL Hemoglobin 11.0 L 13.5-17.5 g/dL Hematocrit 30.9 L 41.0-53.0 % Mean Corpuscular Volume 113.1 H 80.0-100.0 fL Mean Corpuscular Hemoglobin 40.2 H 28.0-32.0 pg Mean Corpuscular Hemoglobin Concent 35.6 32.0-36.0 g/dL Red Cell Distribution Width 18.5 H 11.8-14.3 % Platelet Count 84 L 140-450 10^3/uL Mean Platelet Volume 9.1 6.9-10.8 fL Neutrophils (%) (Auto) 90.6 H 37.0-80.0 % Lymphocytes (%) (Auto) 3.2 L 10.0-50.0 % Monocytes (%) (Auto) 3.3 0.0-12.0 % Eosinophils (%) (Auto) 1.2 0.0-7.0 % Basophils (%) (Auto) 1.7 0.0-2.0 % Neutrophils # (Auto) 4.6 1.6-8.6 10 ^3/uL Lymphocytes # (Auto) 0.2 L 0.4-5.4 10 ^3/uL Monocytes # (Auto) 0.2 0-1.3 10 ^3/uL Eosinophils # (Auto) 0.1 0-0.8 10 ^3/uL Basophils # (Auto) 0.1 0-0.2 10 ^3/uL Nucleated Red Blood Cells 0.1 % Platelet Estimate Decreased Macrocytosis Slight Sodium Level 137 136-145 mmol/L Potassium Level 5.1 3.5-5.1 mmol/L Chloride Level 101 98-107 mmol/L Carbon Dioxide Level 26 20-31 mmol/L Anion Gap 10 5-15 Blood Urea Nitrogen 32 H 9-23 mg/dL Creatinine 0.80 0.700-1.30 mg/dL Glomerular Filtration Rate Calc 93 >90 mL/min BUN/Creatinine Ratio 40.0 H 10.0-20.0 Serum Glucose 100 74-106 mg/dL Calcium Level 9.5 8.7-10.4 mg/dL B-Type Natriuretic Peptide 1185.38 0-100 pg/mL Plasma/Serum Blood Alcohol < 3.0 <10 mg/dL Assessment/Plan Assessment/Plan Admitted him to step-down unit. Continue IV amiodarone drip per protocol. IV fluids. Follow the lactic acid. Empiric antibiotics. Follow urine and blood cultures. Given a atrial fibrillation with risk for stroke I will start him on Lovenox and monitor his platelets closely. Discontinue Lovenox if his platelets below 60 or if he had any significant evidence of bleeding. Meantime 2D echocardiogram. Cardiac consultation. Serial troponins. Physical therapy evaluation. Supportive care and treatment. Cardiac diet. His follow clinical management per clinical course and recommendations from the consultants as well as pending evaluations. His prognosis remains guarded at present. Discussed with the patient regarding care plan. Plan discussed with: Patient, Other My Orders Orders - CRISTA JULES MD Procedure Category Date Status Time Admit ADMIT 12/15/24 Transmitted 11:52 Clear Liq Diet DIET 12/15/24 Transmitted Lunch Echo 2d Mode Cardiac US 12/15/24 Logged DOP 11:52 * Cardiology Consult CONS 12/15/24 Transmitted 11:52 Free T4 (Free LAB 12/15/24 In Process Thyroxine) 11:52 Troponin-I Hs LAB 12/15/24 Logged 17:00 Troponin-I Hs LAB 12/15/24 Logged 23:00 Troponin-I Hs LAB 12/16/24 Verified 05:00 Nitroglycerin PHA 12/15/24 In Process Sublingual (Ntrostat 12:00 Morphine Sulfate PHA 12/15/24 In Process Injection 12:00 Stat Ekg For Chest CRISTINA 12/15/24 In Process Pain 11:52 Notify Of Changes CRISTINA 12/15/24 In Process From Base 11:52 Aerospace Medicine Physician For CRISTINA 12/15/24 In Process 24 Hours 11:52 Emergency Dysrhythmia CRISTINA 12/15/24 In Process Protocol 11:52 Rhythm Strips Once CRISTINA 12/15/24 In Process Every Shift 11:52 Oxygen By Nasal RT 12/15/24 Transmitted Cannula 11:52 Sodium Chloride 0.9% PHA 12/15/24 In Process 12:00 Enoxaparin Sodium PHA 12/15/24 In Process (Lovenox) 13:14 Vancomycin Per PHA 12/15/24 In Process Pharmacy 12:00 Ondansetron Hcl PHA 12/15/24 In Process (Zofran) 12:00 Morphine Sulfate PHA 12/15/24 In Process Injection 12:00 Famotidine Injection PHA 12/15/24 In Process (Pepcid Injection) 22:00 Lactic Acid W/ Reflex LAB 12/15/24 Logged Order 18:00 Lactic Acid W/ Reflex LAB 12/15/24 Logged Order 22:00 Complete Blood Count LAB 12/16/24 Verified 04:00 Comprehensive LAB 12/16/24 Verified Metabolic Panel 04:00 PTPTT LAB 12/16/24 Verified 04:00 Electrocardigram EKG 12/16/24 Logged 04:00 Cefepime 2gm/50ml Ns PHA 12/15/24 In Process (Maxipime 2gm/50ml) 22:00 Pharmacy CRISTINA 12/15/24 In Process Clarification: 13:15 Amiodarone PHA 12/15/24 In Process 360mg/200ml Premix 14:30 Transfer Orders XFER 12/15/24 Transmitted 14:50 Problem List: (1) Liver cirrhosis (2) Liver failure (3) Atrial fibrillation with RVR CRISTA JULES MD December 15, 2024 15:04
[2024-12-15] MEDS: SODIUM CHLORIDE 0.9% 1,000 ML IV SCH (15:15)
[2024-12-15 16:51] VITALS: PULSE 148; RESP 22; O2SAT 92
[2024-12-15] MEDS: CEFEPIME 2GM/50ML NS 50 ML IV ONE (18:06)
[2024-12-15 18:45] LABS: Lactic Acid w/Reflex 3.7 mmol/L (0.4-2.0)
[2024-12-15 19:55] VITALS: PULSE 94; RESP 12; O2SAT 94
[2024-12-15] MEDS: FAMOTIDINE (10MG/ML) 2ML VL IV SCH (22:00)
[2024-12-15] MEDS: CEFEPIME 2GM/50ML NS 50 ML IV SCH (22:00)
[2024-12-15 22:57] LABS: Lactic Acid w/Reflex 4.7 mmol/L (0.4-2.0)
[2024-12-16] MEDS: VANCOMYCIN 1GM/200ML PM 200 ML IV SCH (05:01)
[2024-12-16 05:51] LABS: Basophils # (auto) 0 10 ^3/uL (0-0.2); Basophils % (auto) 0.1 % (0.0-2.0); Eosinophils # (auto) 0.1 10 ^3/uL (0-0.8); Hemoglobin 9.7 g/dL (13.5-17.5)
[2024-12-16 05:54] LABS: Eosinophils % (auto) 0.9 % (0.0-7.0); Hematocrit 27.6 % (41.0-53.0); Lymphocytes # (auto) 0.3 10 ^3/uL (0.4-5.4); Lymphocytes % (auto) 4.5 % (10.0-50.0); Mean Corpuscular Hemoglobin 40.3 pg (28.0-32.0); Mean Corpuscular Hgb Conc. 35.2 g/dL (32.0-36.0); Mean Corpuscular Volume 114.6 fL (80.0-100.0); Monocytes # (auto) 0.3 10 ^3/uL (0-1.3); Monocytes % (auto) 5.2 % (0.0-12.0); Neutrophils # (auto) 5.9 10 ^3/uL (1.6-8.6); Neutrophils % (auto) 89.3 % (37.0-80.0); Nucleated Red Blood Cells % 0.2 %; Platelet Count (auto) 80 10^3/uL (140-450); Red Blood Cells 2.41 10^6/uL (4.5-5.90); Red Cell Distribution Width 19.3 % (11.8-14.3); White Blood Cell 6.6 10^3/uL (4.4-10.8)
[2024-12-16 06:08] LABS: INR 2.09 (0.9-1.15); Partial Thromboplastin Time 56.7 SEC (24.5-34.5); Prothrombin Time 20.6 sec (9.3-11.8)
[2024-12-16 06:13] LABS: Alanine Aminotransferase 32 U/L (7-40); Alkaline Phosphatase 73 U/L (46-116); Anion Gap 8 (5-15); Carbon Dioxide 23 mmol/L (20-31); Chloride 105 mmol/L (98-107)
[2024-12-16 06:22] LABS: Albumin 2.4 g/dL (3.2-4.8); Aspartate Aminotransferase 50 U/L (13-40); Bilirubin, Total 9.7 mg/dL (0.2-1.0); Blood Urea Nitrogen 43 mg/dL (9-23); Calcium 8.2 mg/dL (8.7-10.4); Glucose 199 mg/dL (74-106); Potassium 5.3 mmol/L (3.5-5.1); Sodium 136 mmol/L (136-145)
[2024-12-16 06:23] LABS: BUN/Creatinine Ratio 42.2 (10.0-20.0)
[2024-12-16 06:30] LABS: Total Protein 5.1 g/dL (5.7-8.2)
--- NOTE | 2024-12-16 12:10 | DVHPN2 ---
Progress Note Date Seen: December 16, 2024 Medical Necessity Reason Pt with a Central, PICC or Fol: No Subjective Patient reports: Feels better Other Systems: AF --> Sr Objective vital signs Vital Sign Date Time Temp Pulse Resp B/P (MAP) Pulse Ox O2 Delivery O2 Flow Rate FiO2 12/16/24 11:59 82 12/16/24 09:00 19 104/40 (61) 96 12/16/24 08:00 Nasal Cannula* 2 28 12/15/24 19:35 98.4 98.4 Total Intake and Output 12/15/24 12/15/24 12/16/24 15:00 23:00 07:00 Intake Total 2550.00 ml 445.83 ml 850.0 ml Balance 2550.00 ml 445.83 ml 850.0 ml medications Current Medications Medications Dose Ordered Sig/Alessandro Route Start Time Stop Time Status Last Admin Dose Admin Nitroglycerin 0.4 mg Q5MINP PRN SL 12/15/24 12:00 Morphine Sulfate 2 mg Q30M PRN IV 12/15/24 12:00 Sodium Chloride 1,000 ml @ 100 mls/hr Q10H IV 12/15/24 12:00 12/16/24 08:25 100 MLS/HR Cefepime HCl 50 ml @ 12.5 mls/hr Q8HR IV 12/15/24 14:00 UNV Vancomycin HCl 0 ml @ 0 mls/hr UD IV 12/15/24 12:00 Ondansetron HCl 4 mg Q4HPRN PRN IV 12/15/24 12:00 Morphine Sulfate 2 mg Q4HPRN PRN IV 12/15/24 12:00 Famotidine 20 mg Q12HR IV 12/15/24 22:00 12/16/24 10:31 20 MG Cefepime HCl 50 ml @ 12.5 mls/hr Q8HR IV 12/15/24 22:00 12/16/24 06:14 12.5 MLS/HR Vancomycin HCl 200 ml @ 200 mls/hr Q12H IV 12/16/24 05:00 12/16/24 05:01 200 MLS/HR Examination: GENERAL:Abnormal, HEENT:Abnormal, LUNGS:Abnormal, CVS:Abnormal, ABDOMEN:Abnormal laboratory and microbiology Laboratory Tests 12/16/24 05:18 Test 12/16/24 05:18 Range/Units Serum Glucose 199 H 74-106 mg/dL Microbiology Date/Time Source Procedure Growth Status 12/15/24 07:50 Blood Blood Culture - Preliminary NO GROWTH AFTER 24 HOURS OF INCUBATION. Resulted Problem List/Assessment/Plan Problem List/Assessment/Plan afib severe cirrhosis coagulopathic low PLTs morbid obesity fall dc amio gtt do not give lovenox given high INR consider GI eval po amiodarone on dc high cva risk will sign off Plan discussed with: Patient Date of Service: December 16, 2024 Billing Provider: MILLIE MORRIS MD Common Visit Codes: NOT BILLABLE MILLIE MORRIS MD December 16, 2024 12:10
--- NOTE | 2024-12-16 12:51 | DVHSR ---
APPROVED REPORT EXAM: Two-dimensional and M-mode echocardiogram with Doppler and color Doppler. Blood Pressure: 118/47 mmHg INDICATION AFIB, elevated BNP RISK FACTORS Height: 70, Weight: 200 DIMENSIONS LVDd5.5 (3.8-5.7cm)LA (2D)5.2 (1.9-4.0cm)Aortic Root4.3 (2.0-3.7cm) LVDs3.9 (2.5-4.0cm)LA (MM) (1.9-4.0cm)Aortic Cusp Exc2.1 (1.5-2.0cm) EF (%) 55.0 (55-70%)Rt. Atrium5.2 (1.9-4.0cm)Asc. Aorta cm IVSd1.2 (0.7-1.1cm)RV (D) (1.8-2.4cm) PWd1.5 (0.7-1.1cm) Mitral Valve MitralMitral Stenosis E wave0.92m/sMV Mean GR.mmHg A wave0.66m/sMV Peak GR.41mmHg E/A ratio1.42D MVAcm2 DECEL [id number] 1/2 Ccyq05dx IVRTmsDop MVA3.06cm2 Aortic Valve Aortic ValveAortic Stenosis V11.03m/[place] Mean GR.5mmHg V21.49m/[place] Peak GR.9mmHg LVOT Diameter2.4 (1.8-2.4cm)Doppler AVA3.13cm2 Pulmonic Valve V20.83m/s Tricuspid Valve TR Velocity2.82m/s [id number] Other Information Technically limited study due to patient laying flat on his back. Patient was unable to turn on his side. Conclusion lvef 55% by visual estimate normal rv function left atrium enlarged moderate pericardial fat pad noted
[2024-12-16] MEDS: SODIUM CHLORIDE 0.9% 1,000 ML IV SCH (16:51)
--- NOTE | 2024-12-16 16:57 | DVHPN2 ---
Progress Note - Dictate Date Seen: December 16, 2024 Medical Necessity Reason Pt with a Central, PICC or Fol: No Subjective Clinically stable. Heart rate is controlled. Evaluated by Cardiology. Amiodarone drip has been turned off this morning. vital signs Vital Sign Date Time Temp Pulse Resp B/P (MAP) Pulse Ox O2 Delivery O2 Flow Rate FiO2 12/16/24 16:00 81 18 111/38 (62) 90 12/16/24 08:00 Nasal Cannula* 2 28 12/15/24 19:35 98.4 98.4 Total Intake and Output 12/15/24 12/15/24 12/16/24 15:00 23:00 07:00 Intake Total 2550.00 ml 445.83 ml 850.0 ml Balance 2550.00 ml 445.83 ml 850.0 ml medications Current Medications Medications Dose Ordered Sig/Alessandro Route Start Time Stop Time Status Last Admin Dose Admin Nitroglycerin 0.4 mg Q5MINP PRN SL 12/15/24 12:00 Morphine Sulfate 2 mg Q30M PRN IV 12/15/24 12:00 Cefepime HCl 50 ml @ 12.5 mls/hr Q8HR IV 12/15/24 14:00 UNV Vancomycin HCl 0 ml @ 0 mls/hr UD IV 12/15/24 12:00 Ondansetron HCl 4 mg Q4HPRN PRN IV 12/15/24 12:00 Morphine Sulfate 2 mg Q4HPRN PRN IV 12/15/24 12:00 Famotidine 20 mg Q12HR IV 12/15/24 22:00 12/16/24 10:31 20 MG Cefepime HCl 50 ml @ 12.5 mls/hr Q8HR IV 12/15/24 22:00 12/16/24 14:33 12.5 MLS/HR Vancomycin HCl 200 ml @ 200 mls/hr Q12H IV 12/16/24 05:00 12/16/24 05:01 200 MLS/HR Sodium Chloride 1,000 ml @ 60 mls/hr [id number] IV 12/16/24 16:00 12/16/24 16:51 60 MLS/HR Metoprolol Tartrate 25 mg BID PO 12/16/24 22:00 Amiodarone HCl 200 mg Q12HR PO 12/16/24 22:00 objective Alert awake oriented to place and person. HEENT neck supple no JVD. Heart regular rate and rhythm S1-S2. Lungs fair air movement without rales wheezes. Abdomen soft nontender positive bowel sounds. Extremities no edema positive pulses laboratory and microbiology Laboratory Tests 12/16/24 05:18 Test 12/16/24 05:18 Range/Units Serum Glucose 199 H 74-106 mg/dL Assessment/Plan Given patient rate is controlled we will transitioned to oral amiodarone and a beta maryam. Withhold any anticoagulation given patient is coagulopathic from his liver cirrhosis. Otherwise downgrade him to telemetry floor. Physical therapy evaluation. Cardiac diet. Continue rest of supportive care and treatment. Further clinical management per clinical course. Discussed with the nurse regarding care plan. Problems(with codes): (1) Atrial fibrillation with RVR (2) Liver cirrhosis (3) History of BPH Plan discussed with: Other CRISTA JULES MD December 16, 2024 16:57
[2024-12-16 19:30] VITALS: PULSE 92; RESP 21; O2SAT 95
[2024-12-16] MEDS: AMIODARONE HCL 200 MG TAB PO SCH (22:20)
[2024-12-16] MEDS: METOPROLOL TARTRATE 25 MG TAB PO SCH (22:21)
[2024-12-16] MEDS: MORPHINE SULFATE INJ 2 MG/ml SYRG IV PRN (22:23)
[2024-12-16 23:24] VITALS: BP 120/57; PULSE 96; RESP 20; TEMP 98.1; O2SAT 94
[2024-12-17 05:22] LABS: Potassium 4.3 mmol/L (3.5-5.1); Sodium 141 mmol/L (136-145)
[2024-12-17 05:23] LABS: Anion Gap 7 (5-15); Carbon Dioxide 24 mmol/L (20-31)
[2024-12-17 05:24] LABS: Calcium 7.7 mg/dL (8.7-10.4); Chloride 110 mmol/L (98-107)
[2024-12-17 05:29] LABS: Basophils # (auto) 0 10 ^3/uL (0-0.2); Basophils % (auto) 0.2 % (0.0-2.0); Eosinophils # (auto) 0.5 10 ^3/uL (0-0.8); Eosinophils % (auto) 8.8 % (0.0-7.0); Hematocrit 27.2 % (41.0-53.0); Hemoglobin 9.4 g/dL (13.5-17.5); Lymphocytes # (auto) 0.5 10 ^3/uL (0.4-5.4); Lymphocytes % (auto) 8.6 % (10.0-50.0); Mean Corpuscular Hemoglobin 39.6 pg (28.0-32.0); Mean Corpuscular Hgb Conc. 34.6 g/dL (32.0-36.0); Mean Corpuscular Volume 114.3 fL (80.0-100.0); Monocytes # (auto) 0.6 10 ^3/uL (0-1.3); Monocytes % (auto) 10.4 % (0.0-12.0); Neutrophils # (auto) 4.1 10 ^3/uL (1.6-8.6); Nucleated Red Blood Cells % 0.1 %; Platelet Count (auto) 74 10^3/uL (140-450); Red Blood Cells 2.38 10^6/uL (4.5-5.90); Red Cell Distribution Width 19.8 % (11.8-14.3); White Blood Cell 5.7 10^3/uL (4.4-10.8)
[2024-12-17 05:31] LABS: Blood Urea Nitrogen 47 mg/dL (9-23); Glucose 120 mg/dL (74-106)
[2024-12-17 08:00] VITALS: PULSE 88
[2024-12-17 09:30] VITALS: BP 109/50; PULSE 78; RESP 18; TEMP 97.9; O2SAT 100
[2024-12-17 13:00] VITALS: BP 101/50; PULSE 69; RESP 18; TEMP 97.5; O2SAT 92
--- NOTE | 2024-12-17 14:22 | MEDREC ---
[facility] ASP Intervention Section I [facility] ASP Intervention: Deescalate AB based on CS (PLEASE CONSIDER DE-ESCALATION BASED ON CULTURE RESULTS (D/C VANCOMYCIN) ) ROYER VIRAMONTES PHARMACIST December 17, 2024 14:22
--- NOTE | 2024-12-17 16:54 | DVHPN2 ---
Progress Note - Dictate Date Seen: December 17, 2024 Medical Necessity Reason Pt with a Central, PICC or Fol: No Subjective Clinically stable. Heart rate is controlled. No complaints. Patient lives alone at home. vital signs Vital Sign Date Time Temp Pulse Resp B/P (MAP) Pulse Ox O2 Delivery O2 Flow Rate FiO2 12/17/24 13:00 97.5 69 18 101/50 (67) 92 97.5 12/17/24 08:15 Room Air* 0 21 Total Intake and Output 12/16/24 12/16/24 12/17/24 15:00 23:00 07:00 Intake Total 600 ml 137.5 ml 50 ml Balance 600 ml 137.5 ml 50 ml medications Current Medications Medications Dose Ordered Sig/Alessandro Route Start Time Stop Time Status Last Admin Dose Admin Nitroglycerin 0.4 mg Q5MINP PRN SL 12/15/24 12:00 Morphine Sulfate 2 mg Q30M PRN IV 12/15/24 12:00 Cefepime HCl 50 ml @ 12.5 mls/hr Q8HR IV 12/15/24 14:00 UNV Ondansetron HCl 4 mg Q4HPRN PRN IV 12/15/24 12:00 Morphine Sulfate 2 mg Q4HPRN PRN IV 12/15/24 12:00 12/16/24 22:23 2 MG Cefepime HCl 50 ml @ 12.5 mls/hr Q8HR IV 12/15/24 22:00 12/17/24 13:55 12.5 MLS/HR Metoprolol Tartrate 25 mg BID PO 12/16/24 22:00 12/16/24 22:21 25 MG Amiodarone HCl 200 mg Q12HR PO 12/16/24 22:00 12/16/24 22:20 200 MG objective Alert awake oriented to place and person. HEENT neck supple no JVD. Heart regular rate and rhythm S1-S2. Lungs fair air movement without rales wheezes. Abdomen soft nontender positive bowel sounds. Extremities no edema positive pulses laboratory and microbiology Laboratory Tests 12/17/24 05:00 Test 12/17/24 05:00 Range/Units Serum Glucose 120 H 74-106 mg/dL Assessment/Plan Continue oral medications for heart rate control. We will check his ammonia level and start him on rifaximin for possible hepatic encephalopathy given the underlying history of liver cirrhosis. DC Brady catheter. Continue physical therapy evaluation. Bedside commode and urinal we will be provided. Social Service consultation for long-term facility placement given physical deconditioning and being lives alone at home. Discussed with the patient and nurse at bedside regarding care plan. Problems(with codes): (1) Liver failure (2) Atrial fibrillation with RVR (3) Liver cirrhosis (4) History of BPH Plan discussed with: Patient, Other CRISTA JULES MD December 17, 2024 16:54
[2024-12-17 17:30] VITALS: BP 105/54; PULSE 86; RESP 18; TEMP 97.6; O2SAT 92
[2024-12-17 20:00] VITALS: PULSE 88; RESP 16; O2SAT 93
[2024-12-17 21:00] VITALS: BP 105/46; PULSE 78; RESP 16; TEMP 97.9; O2SAT 93
[2024-12-17] MEDS: rifAXIMin 550 MG TAB PO SCH (22:27)
[2024-12-18] VITALS (8 sets, daily range): BP systolic 100–134; BP diastolic 50–68; PULSE 63–92; RESP 16–22; TEMP 97.5–98; O2SAT 90–99
[2024-12-18 09:39] LABS: Anion Gap 6 (5-15); Carbon Dioxide 25 mmol/L (20-31); Potassium 4.4 mmol/L (3.5-5.1); Sodium 140 mmol/L (136-145)
[2024-12-18 09:45] LABS: BUN/Creatinine Ratio 48.3 (10.0-20.0)
[2024-12-18 09:49] LABS: Blood Urea Nitrogen 43 mg/dL (9-23); Calcium 8.3 mg/dL (8.7-10.4); Chloride 109 mmol/L (98-107); Glucose 160 mg/dL (74-106)
== END 2024-12-18 20:31 | DRG 442 ==
LOC: EDBD 04:52 → ER 04:52 → OVERFLOW 11:52 → TELE-CENTR 12-16 21:25
PROVIDERS: ADMIT Hospitalist; ATTEND Hospitalist
DX: K76.82 Hepatic encephalopathy (principal); D68.9 Coagulation defect, unspecified; I48.20 Chronic atrial fibrillation, unspecified; K74.60 Unspecified cirrhosis of liver; N40.0 Benign prostatic hyperplasia without lower urinary tract symptoms; I95.9 Hypotension, unspecified; K72.10 Chronic hepatic failure without coma; E66.01 Morbid (severe) obesity due to excess calories; Z79.2 Long term (current) use of antibiotics; Z79.899 Other long term (current) drug therapy; Z82.61 Family history of arthritis; Z68.27 Body mass index [BMI] 27.0-27.9, adult
CPT/HCPCS: 36415; 70450; 71045; 80048; 80053; 80202; 80320; 81001; 82140; 83605; 83735; 83880; 84439; 84443; 84484; 85025; 85610; 85730; 87040; 87077; 87186; 93005; 93306; 97116; 97163; 97530; 99291; G0378; J0692; J3490